=== PATIENT | female | born 1955 | race Caucasian/White ===

== ENCOUNTER 2021-11-01 06:10 | Day surgery (SDC) | payer OTHER ==
[~2021-11-01 06:10] MED LIST: Lactated Ringers 1,000 ML IV SCH; Lidocaine 1%/Sod Bicarbonate in NS 8.4% 1 ML Syringe IDERM PRN; Sodium Chloride 0.9% 10 ML Syringe FLUSH PRN
[2021-11-01] MEDS ORDERED: Lidocaine 1% 30 ML SDV ONE (06:13)
[2021-11-01] MEDS ORDERED: Bupivacaine 0.25% 10 ML SDV ONE (06:13)
[2021-11-01] MEDS ORDERED: ceFAZolin 2 GM Vial ONE (06:34)
[2021-11-01] MEDS: Sodium Chloride 0.9% 10 ML Syringe FLUSH SCH ×2 (06:40→06:50)
== END 2021-11-01 07:49 | disposition home or self-care (01) ==
LOC: JD.SDS 06:10
PROVIDERS: ATTEND Orthopaedic Surgery
DX: M65.842 Other synovitis and tenosynovitis, left hand (principal); E03.9 Hypothyroidism, unspecified; M65.352 Trigger finger, left little finger; Z79.890 Hormone replacement therapy; Z79.899 Other long term (current) drug therapy; Z98.890 Other specified postprocedural states; Z87.891 Personal history of nicotine dependence; Z88.2 Allergy status to sulfonamides
CPT/HCPCS: 26055; J0690; J3490